=== PATIENT | male | born 1975 | race Caucasian/White ===

== ENCOUNTER → 2018-04-21 | Outpatient (CLI) | payer BC ==
[~2018-04-21] MED LIST: CLIN150C17 PO; LISI10TA2 PO; NEBI5TAB8 PO; OMG1KC PO
--- NOTE | 2018-04-22 15:40 | Diagnostic Imaging Report ---
INDICATION: Hyperthyroidism. TECHNIQUE: Patient was administered 194 ?Ci of I-123 orally and a 4 hour and 24 hour thyroid uptake and thyroid scan was performed. FINDINGS: 4 hour uptake is 7%. 24-hour uptake is 17%. Normal 24-hour thyroid uptake is 10-30%. Thyroid scan shows fairly homogeneous uptake throughout both lobes of the thyroid gland. No hot or cold nodules are seen. IMPRESSION: Normal thyroid uptake and scan. Dictated by: Dictated on workstation # [id number]
== END ==
LOC: RAD 11:42
PROVIDERS: ATTEND Internal Medicine Endocrinology, Diabetes & Metabolism
DX: E05.90 Thyrotoxicosis, unspecified without thyrotoxic crisis or storm (principal)
CPT/HCPCS: 78014